=== PATIENT | male | born 1975 | race Caucasian/White ===

== ENCOUNTER 2020-06-25 11:55 | Emergency (ER) | payer OTHER ==
[2020-06-25] MEDS ORDERED: IBUPROFEN600 MG PO (14:24)
== END 2020-06-25 14:26 | disposition home or self-care (01) ==
LOC: ER1 11:55
DX: S70.02XA Contusion of left hip, initial encounter (principal); M54.9 Dorsalgia, unspecified; R10.2 Pelvic and perineal pain; F17.290 Nicotine dependence, other tobacco product, uncomplicated; W17.89XA Other fall from one level to another, initial encounter; Y92.89 Other specified places as the place of occurrence of the external cause; Y99.0 Civilian activity done for income or pay; Z86.16 Personal history of COVID-19
CPT/HCPCS: 73502; 99283